=== PATIENT | male | born 2000 | race Caucasian/White ===

== ENCOUNTER 2024-10-26 14:13 | Emergency (ER) | payer SELFPAY ==
[~2024-10-26] VITALS: Ht 188 cm; Wt 72.7 kg
[2024-10-26] MEDS ORDERED: Tdap Vaccine 0.5 ML SYRINGE IM ONE (14:45)
[2024-10-26] MEDS ORDERED: DOXYCYCLINE HY100 M5 PO (15:56)
[2024-10-26 16:16] VITALS: BP 121/72
== END 2024-10-26 16:13 | disposition home or self-care (01) ==
LOC: ED 14:13
DX: S01.111A Laceration without foreign body of right eyelid and periocular area, initial encounter (principal); K09.0 Developmental odontogenic cysts; Z23 Encounter for immunization; Z88.0 Allergy status to penicillin; W22.8XXA Striking against or struck by other objects, initial encounter; Y92.59 Other trade areas as the place of occurrence of the external cause
CPT/HCPCS: 90715